=== PATIENT | female | born 1990 | race Caucasian/White ===

== ENCOUNTER → 2016-10-24 | Outpatient (REF) | payer OTHER | LOC: M LAB REF 09:04 | PROVIDERS: ATTEND Physician Assistant Medical | DX: N39.0 Urinary tract infection, site not specified (principal) ==

== ENCOUNTER → 2016-11-25 | Outpatient (CLI) | payer OTHER ==
[2016-11-25 15:58] LABS: BASO % 0.6 % (0.0-1.0); EOS # 0.2 K/mm3 (0.0-0.50); EOS % 3.3 % (0.0-3.0); LARGE UNSTAINED CELL # 0.1 K/mm3 (0.0-0.4); LARGE UNSTAINED CELL % 1.5 % (0.0-4.0); LYMPH # 2.2 K/mm3 (1.5-6.5); LYMPH % 30.7 % (24.0-44.0); MEAN CORPUSCULAR HEMOGLOBIN 30.6 pg (27.0-33.0); MEAN CORPUSCULAR HGB CONC 33.8 g/dl (32.0-36.5); MEAN CORPUSCULAR VOLUME 90.5 fl (80.0-96.0); MONO # 0.4 K/mm3 (0.0-0.8); MONO % 5.2 % (0.0-5.0); NEUTROPHILS % 58.7 % (36.0-66.0); PLATELET COUNT, AUTOMATED 375 k/mm3 (150-450); RED CELL DISTRIBUTION WIDTH 12.4 % (11.5-14.5); WHITE BLOOD COUNT 6.9 K/mm3 (4.0-10.0)
[2016-11-25 16:31] LABS: FREE T4 1.03 NG/DL (0.76-1.46)
== END ==
LOC: M LAB 15:11
PROVIDERS: ATTEND Nurse Practitioner Family
DX: R53.83 Other fatigue (principal); R03.0 Elevated blood-pressure reading, without diagnosis of hypertension

== ENCOUNTER 2016-12-08 08:16 | Emergency (ER) | payer OTHER ==
[~2016-12-08] VITALS: Ht 162.6 cm; Wt 90.7 kg
[2016-12-08 08:31] VITALS: BP 129/81
== END 2016-12-08 09:15 | disposition home or self-care (01) ==
LOC: M ED 09:09
DX: J06.9 Acute upper respiratory infection, unspecified (principal); F17.210 Nicotine dependence, cigarettes, uncomplicated

== ENCOUNTER → 2016-12-20 | Outpatient (CLI) | payer OTHER ==
[2016-12-20 18:16] LABS: LUTEINIZING HORMONE 8.2 mIU/mL; PROGESTERONE 7.2 NG/ML; PROLACTIN 11.8 NG/ML
[2016-12-20 18:17] LABS: FOLLICLE STIMULATING HORMONE 3.2 mIU/mL
== END ==
LOC: M SMT 13:50
PROVIDERS: ATTEND Specialist
DX: N93.8 Other specified abnormal uterine and vaginal bleeding (principal)
CPT/HCPCS: 36415; 83001; 83002; 84144; 84146; G0123

== ENCOUNTER → 2017-11-11 | Outpatient (CLI) | payer OTHER | LOC: M SMT 10:48 | DX: N83.299 Other ovarian cyst, unspecified side (principal) | CPT/HCPCS: 76830 ==

== ENCOUNTER 2018-06-10 18:20 | Emergency (ER) | payer OTHER | END 2018-06-10 23:22 | disposition home or self-care (01) | LOC: M ED 18:20 | DX: S90.112A Contusion of left great toe without damage to nail, initial encounter (principal); X58.XXXA Exposure to other specified factors, initial encounter; Y92.59 Other trade areas as the place of occurrence of the external cause; Y99.0 Civilian activity done for income or pay; F17.200 Nicotine dependence, unspecified, uncomplicated | CPT/HCPCS: 73660 ==

== ENCOUNTER → 2018-06-10 | Outpatient (CLI) | payer OTHER | LOC: M WUC 17:44 | DX: M54.41 Lumbago with sciatica, right side (principal) | CPT/HCPCS: 72110 ==

== ENCOUNTER → 2018-06-13 | Outpatient (CLI) | payer OTHER ==
[2018-06-13 18:02] LABS: ALBUMIN 4.6 GM/DL (3.2-5.2); ALBUMIN/GLOBULIN RATIO 1.39 (1.00-1.93); ALKALINE PHOSPHATASE 74 U/L (45-117); ALT/SGPT 19 U/L (12-78); ANION GAP 8 MEQ/L (8-16); AST/SGOT 12 U/L (7-37); BILIRUBIN,TOTAL 0.6 MG/DL (0.2-1.0); BLOOD UREA NITROGEN 12 MG/DL (7-18); CALCIUM LEVEL 10.1 MG/DL (8.5-10.1); CARBON DIOXIDE LEVEL 28 MEQ/L (21-32); CHLORIDE LEVEL 107 MEQ/L (98-107); CHOLESTEROL LEVEL 162 MG/DL (<200); CHOLESTEROL RISK RATIO 2.612 (<5); CREATININE FOR GFR 0.78 MG/DL (0.55-1.30); GLOMERULAR FILTRATION RATE > 60.0 (>60); GLUCOSE, FASTING 89 MG/DL (70-100); HDL CHOLESTEROL 62 MG/DL (>40); LDL CHOLESTEROL 84.4 MG/DL (<100); NON-HDL-C 100 MG/DL; SODIUM LEVEL 143 MEQ/L (136-145); TOTAL PROTEIN 7.9 GM/DL (6.4-8.2); TRIGLYCERIDES LEVEL 78 MG/DL (<150)
[2018-06-13 18:06] LABS: POTASSIUM SERUM 5.3 MEQ/L (3.5-5.1)
== END ==
LOC: M WUC 11:13
DX: Z00.00 Encounter for general adult medical examination without abnormal findings (principal); Z13.220 Encounter for screening for lipoid disorders; Z68.30 Body mass index [BMI] 30.0-30.9, adult
CPT/HCPCS: 80053

== ENCOUNTER → 2018-06-23 | Outpatient (REF) | payer OTHER ==
[2018-06-23 14:18] LABS: ANION GAP 7 MEQ/L (8-16); BLOOD UREA NITROGEN 10 MG/DL (7-18); CALCIUM LEVEL 9.5 MG/DL (8.5-10.1); CARBON DIOXIDE LEVEL 29 MEQ/L (21-32); CHLORIDE LEVEL 104 MEQ/L (98-107); GLOMERULAR FILTRATION RATE > 60.0 (>60); GLUCOSE, FASTING 101 MG/DL (70-100); POTASSIUM SERUM 3.9 MEQ/L (3.5-5.1); SODIUM LEVEL 140 MEQ/L (136-145)
== END ==
LOC: M SFHCPLAZ 12:28
DX: E87.5 Hyperkalemia (principal)

== ENCOUNTER → 2018-07-08 | Outpatient (REF) | payer OTHER | LOC: M LAB REF 09:29 | DX: R30.0 Dysuria (principal) ==

== ENCOUNTER 2018-07-11 15:57 | Emergency (ER) | payer OTHER, SELFPAY ==
[2018-07-11] MEDS: AZITHROMYCIN 250 MG TAB PO (16:47)
[2018-07-11] MEDS: LIDOCAINE 1% MDV 20ML VIAL IM (16:47)
[2018-07-11] MEDS: cefTRIAXone SOD 250 MG VIAL (J0696) IM (16:47)
[2018-07-11 17:29] LABS: AMORPHOUS SEDIMENT RFX LARGE (NEGATIVE); KETONE, URINE AUTO RFX NEGATIVE (NEGATIVE); NITRITE, URINE AUTO RFX NEGATIVE (NEGATIVE); RBC, URINE AUTO RFX 2 /HPF (0-3); SPECIFIC GRAVITY UR AUTO RFX 1.011 (1.002-1.035); SQUAM EPITHELIAL CELL UR AURFX 2 /HPF (0-6); WBC, URINE AUTO RFX 0 /HPF (0-3)
[2018-07-11 17:37] LABS: LEUKOCYTE ESTERASE UR AUTO RFX TRACE (NEGATIVE)
[2018-07-11 18:23] LABS: CHLAMYDIA DNA AMPLIFICATION POSITIVE (NEGATIVE); GC DNA AMPLIFICATION NEGATIVE (NEGATIVE)
[2018-07-13 10:41] LABS: HIV 1&2 SCREEN CENTAUR NEGATIVE (NEGATIVE)
== END 2018-07-11 16:54 | disposition home or self-care (01) ==
LOC: M ED 15:57
DX: Z20.2 Contact with and (suspected) exposure to infections with a predominantly sexual mode of transmission (principal); A74.9 Chlamydial infection, unspecified; F17.210 Nicotine dependence, cigarettes, uncomplicated
CPT/HCPCS: J0696

== ENCOUNTER → 2018-07-16 | Outpatient (REF) | payer OTHER ==
[2018-07-16 12:37] LABS: CONTROL LINE HCG INT CTR LINE PRESENT; HCG, SERUM QUALITATIVE NEGATIVE (NEGATIVE)
== END ==
LOC: M SFHCPLAZ 10:27
DX: N91.2 Amenorrhea, unspecified (principal); R10.9 Unspecified abdominal pain; R30.0 Dysuria
CPT/HCPCS: 84703

== ENCOUNTER → 2018-07-30 | Outpatient (CLI) | payer OTHER | LOC: M RAD 10:16 | DX: R10.9 Unspecified abdominal pain (principal) | CPT/HCPCS: 76775 ==

== ENCOUNTER → 2018-08-08 | Outpatient (CLI) | payer SELFPAY ==
[2018-08-08 21:44] LABS: CHLAMYDIA DNA AMPLIFICATION NEGATIVE (NEGATIVE); GC DNA AMPLIFICATION NEGATIVE (NEGATIVE)
== END ==
LOC: M LAB 17:29
DX: A74.9 Chlamydial infection, unspecified (principal)
CPT/HCPCS: 36415

== ENCOUNTER 2018-09-28 16:45 | Emergency (ER) | payer SELFPAY ==
[~2018-09-28] VITALS: Ht 162.6 cm; Wt 77.3 kg
[2018-09-28] MEDS ORDERED: NORCO, ANEXSIA 5/325MG TABLET (HYDROcodone/ACETAMINOPHEN) PO ONE (17:30)
--- NOTE | 2018-09-28 17:58 | REP ---
Clinical: Trauma. Deformity. Technique: AP, lateral, bilateral oblique views of the left ankle. Findings: Nondisplaced oblique fracture of the lateral malleolus with overlying soft tissue swelling. Minuscule avulsion fracture fragment of the medial malleolus cannot be excluded. Overlying soft tissue swelling. Impression: Nondisplaced oblique fracture of the lateral malleolus with minuscule a avulsion fracture of the medial malleolus. Electronically Signed by Christophe Carreno MD 09/28/2018 05:50 P
[2018-09-28] MEDS ORDERED: NORCO 5/325MG TABLET (BULK FOR ED) PO ONE (18:30)
[2018-09-28] MEDS ORDERED: NORCOTAB PO (18:32)
[2018-09-28 18:42] VITALS: BP 134/81
== END 2018-09-28 18:55 | disposition home or self-care (01) ==
LOC: M ED 16:45
DX: S82.401A Unspecified fracture of shaft of right fibula, initial encounter for closed fracture (principal); S82.832A Other fracture of upper and lower end of left fibula, initial encounter for closed fracture; X50.9XXA Other and unspecified overexertion or strenuous movements or postures, initial encounter; Y92.410 Unspecified street and highway as the place of occurrence of the external cause

== ENCOUNTER 2018-09-29 16:17 | Emergency (ER) | payer SELFPAY ==
[~2018-09-29] VITALS: Ht 162.6 cm; Wt 77.3 kg
[2018-09-29 16:17] VITALS: BP 141/90
[~2018-09-29 16:17] MED LIST: NORCOTAB PO
[2018-09-29] MEDS ORDERED: NORCO 5/325MG TABLET (BULK FOR ED) PO ONE (17:00)
== END 2018-09-29 17:07 | disposition home or self-care (01) ==
LOC: M ED 16:17
DX: Z76.0 Encounter for issue of repeat prescription (principal); S82.899A Other fracture of unspecified lower leg, initial encounter for closed fracture; Y92.89 Other specified places as the place of occurrence of the external cause; F17.200 Nicotine dependence, unspecified, uncomplicated

== ENCOUNTER → 2018-10-20 | Outpatient (REF) | payer OTHER ==
[2018-10-20 17:32] LABS: CHLAMYDIA DNA AMPLIFICATION NEGATIVE (NEGATIVE); GC DNA AMPLIFICATION NEGATIVE (NEGATIVE)
== END ==
LOC: M SFHCPLAZ 13:05
PROVIDERS: ATTEND Family Medicine
DX: R10.2 Pelvic and perineal pain (principal)

== ENCOUNTER 2018-12-01 09:59 | Outpatient (RCR) | payer OTHER | END 2018-12-03 | LOC: M PT 09:59 | PROVIDERS: ATTEND Physician Assistant Surgical | DX: S82.65XD Nondisplaced fracture of lateral malleolus of left fibula, subsequent encounter for closed fracture with routine healing (principal); Y99.8 Other external cause status; X58.XXXA Exposure to other specified factors, initial encounter ==

== ENCOUNTER → 2018-12-09 | Outpatient (CLI) | payer OTHER | LOC: M WUC 09:56 | PROVIDERS: ATTEND Physician Assistant Surgical | DX: M77.52 Other enthesopathy of left foot and ankle (principal) ==

== ENCOUNTER 2018-12-17 09:45 | Outpatient (RCR) | payer OTHER | END 2019-01-03 | LOC: M PT 09:45 | PROVIDERS: ATTEND Physician Assistant | DX: M77.52 Other enthesopathy of left foot and ankle (principal) ==

== ENCOUNTER → 2019-02-17 | Outpatient (REF) | payer OTHER ==
[~2019-02-17] MED LIST changes: +HYDR-3715 PO; -NORCOTAB PO
[2019-02-17 18:04] LABS: CHLAMYDIA DNA AMPLIFICATION NEGATIVE (NEGATIVE); GC DNA AMPLIFICATION NEGATIVE (NEGATIVE)
== END ==
LOC: M SFHCPLAZ 15:42
PROVIDERS: ATTEND Nurse Practitioner Family
DX: Z20.2 Contact with and (suspected) exposure to infections with a predominantly sexual mode of transmission (principal); R39.15 Urgency of urination

== ENCOUNTER → 2019-03-05 | Outpatient (RCR) | payer OTHER | LOC: M PT 02-15 09:40 | PROVIDERS: ATTEND Orthopaedic Surgery | DX: S82.845A Nondisplaced bimalleolar fracture of left lower leg, initial encounter for closed fracture (principal); M25.872 Other specified joint disorders, left ankle and foot; X58.XXXA Exposure to other specified factors, initial encounter; Y92.89 Other specified places as the place of occurrence of the external cause; Y93.89 Activity, other specified; Y99.8 Other external cause status ==

== ENCOUNTER → 2019-03-11 | Outpatient (CLI) | payer OTHER | LOC: M SMT 11:58 | PROVIDERS: ATTEND Orthopaedic Surgery | DX: S82.845D Nondisplaced bimalleolar fracture of left lower leg, subsequent encounter for closed fracture with routine healing (principal); X58.XXXD Exposure to other specified factors, subsequent encounter ==

== ENCOUNTER → 2019-03-11 | Outpatient (REF) | payer OTHER ==
[2019-03-11 15:37] LABS: CHLAMYDIA DNA AMPLIFICATION NEGATIVE (NEGATIVE); GC DNA AMPLIFICATION NEGATIVE (NEGATIVE)
== END ==
LOC: M LAB REF 13:19
PROVIDERS: ATTEND Specialist
DX: Z11.3 Encounter for screening for infections with a predominantly sexual mode of transmission (principal)

== ENCOUNTER → 2019-03-11 | Outpatient (CLI) | payer OTHER ==
[2019-03-12 11:08] LABS: HEPATITIS A ANTIBODY IGM NEGATIVE (NEGATIVE); HEPATITIS B CORE ANTIBODY IGM NEGATIVE (NEGATIVE); HEPATITIS B SURFACE ANTIGEN NEGATIVE (NEGATIVE); HEPATITIS C VIRUS ABY INDEX < 0.0 INDEX (<0.8); HIV 1&2 SCREEN CENTAUR NEGATIVE (NEGATIVE)
== END ==
LOC: M SMT 12:01
PROVIDERS: ATTEND Specialist
DX: Z11.3 Encounter for screening for infections with a predominantly sexual mode of transmission (principal)

== ENCOUNTER 2019-04-02 10:30 | Outpatient (RCR) | payer OTHER | END 2019-04-04 | LOC: M PT 10:30 | PROVIDERS: ATTEND Orthopaedic Surgery | DX: S82.845D Nondisplaced bimalleolar fracture of left lower leg, subsequent encounter for closed fracture with routine healing (principal); M25.872 Other specified joint disorders, left ankle and foot ==

== ENCOUNTER 2019-04-12 10:30 | Outpatient (RCR) | payer OTHER | END 2019-05-05 | LOC: M PT 10:30 | PROVIDERS: ATTEND Orthopaedic Surgery | DX: S82.845 Nondisplaced bimalleolar fracture of left lower leg (principal); M25.872 Other specified joint disorders, left ankle and foot ==

== ENCOUNTER → 2019-04-13 | Outpatient (REF) | payer OTHER ==
[2019-04-13 13:18] LABS: BASO # 0.1 10^3/uL (0.0-0.2); BASO % 0.8 % (0.0-1.0); EOS # 0.2 10^3/uL (0.0-0.50); EOS % 3.1 % (0.0-3.0); HEMATOCRIT 41.4 % (36.0-47.0); HEMOGLOBIN 13.7 g/dl (12.0-15.5); LYMPH # 2.1 10^3/uL (1.5-6.5); LYMPH % 36.1 % (24.0-44.0); MEAN CORPUSCULAR HEMOGLOBIN 31.4 pg (27.0-33.0); MEAN CORPUSCULAR HGB CONC 33.1 g/dl (32.0-36.5); MEAN CORPUSCULAR VOLUME 94.7 fl (80.0-96.0); MONO # 0.5 10^3/uL (0.0-0.8); MONO % 8.5 % (0.0-5.0); PLATELET COUNT, AUTOMATED 393 10^3/uL (150-450); RED BLOOD COUNT 4.37 10^6/uL (4.00-5.40); WHITE BLOOD COUNT 5.9 10^3/uL (4.0-10.0)
[2019-04-13 14:24] LABS: BLOOD UREA NITROGEN 15 MG/DL (7-18); CARBON DIOXIDE LEVEL 25 MEQ/L (21-32); CHLORIDE LEVEL 107 MEQ/L (98-107); CREATININE FOR GFR 0.84 MG/DL (0.55-1.30); GLOMERULAR FILTRATION RATE > 60.0 (>60); GLUCOSE, FASTING 82 MG/DL (70-100); POTASSIUM SERUM 4.3 MEQ/L (3.5-5.1); SODIUM LEVEL 140 MEQ/L (136-145)
== END ==
LOC: M SFHCPLAZ 11:18
PROVIDERS: ATTEND Nurse Practitioner Family
DX: R63.5 Abnormal weight gain (principal); Z68.34 Body mass index [BMI] 34.0-34.9, adult

== ENCOUNTER → 2019-04-20 | Outpatient (CLI) | payer OTHER ==
[~2019-04-20] MED LIST changes: +CHOL100029 PO; +CIPR-249 PO; +FLAG500T PO; +ISOVUE-370 76% 100ML VIAL (Q9967) As Ordered ONE; +ONDA4TAB6 PO
--- NOTE | 2019-04-20 14:54 | REP ---
HYSTEROSALPINGOGRAM: 10 VIEWS. HISTORY: Infertility, secondary. PROCEDURE: The injection procedure is performed by the attending enterprise resource planner. Fluoroscopic spot filming was acquired. The fluoroscopy time for this examination is 0.8 minutes. FINDINGS: Sequential pelvic spot radiographs demonstrate opacification of a normal endometrial cavity. The isthmic and ampullary segments of the fallopian tubes are symmetrically opacified. Bilateral peritoneal spillage is documented. No filling defect is seen. IMPRESSION: Normal hysterosalpingogram. Bilateral tubal patency documented. Electronically Signed by Charly Penaloza MD 04/20/2019 03:04 P
== END ==
LOC: M RADPRO 12:02
PROVIDERS: ATTEND Specialist
DX: N93.8 Other specified abnormal uterine and vaginal bleeding (principal)
CPT/HCPCS: 58340; 74740; Q9967

== ENCOUNTER 2019-07-18 15:53 | Emergency (ER) | payer OTHER ==
[~2019-07-18] VITALS: Ht 162.6 cm; Wt 88.6 kg
[~2019-07-18 15:53] MED LIST changes: -CHOL100029 PO; -CIPR-249 PO; -FLAG500T PO; -ISOVUE-370 76% 100ML VIAL (Q9967) As Ordered ONE; -ONDA4TAB6 PO
[2019-07-18] MEDS ORDERED: CHOL100029 PO (16:01)
[2019-07-18 16:32] LABS: BASO # 0.1 10^3/uL (0.0-0.2); BASO % 0.7 % (0.0-1.0); EOS # 0.1 10^3/uL (0.0-0.5); EOS % 1.2 % (0.0-3.0); HEMATOCRIT 44.1 % (36.0-47.0); HEMOGLOBIN 14.7 g/dl (12.0-15.5); LYMPH # 2.6 10^3/uL (1.5-5.0); LYMPH % 29.8 % (24.0-44.0); MEAN CORPUSCULAR HEMOGLOBIN 30.2 pg (27.0-33.0); MEAN CORPUSCULAR HGB CONC 33.3 g/dl (32.0-36.5); MEAN CORPUSCULAR VOLUME 90.6 fl (80.0-96.0); MONO # 0.5 10^3/uL (0.0-0.8); MONO % 6.1 % (0.0-5.0); NEUTROPHILS # 5.3 10^3/uL (1.5-8.5); NEUTROPHILS % 62.1 % (36.0-66.0); PLATELET COUNT, AUTOMATED 398 10^3/uL (150-450); RED BLOOD COUNT 4.87 10^6/uL (4.00-5.40); WHITE BLOOD COUNT 8.6 10^3/uL (4.0-10.0)
[2019-07-18 17:00] LABS: HCG, SERUM QUALITATIVE NEGATIVE (NEGATIVE)
[2019-07-18 17:01] LABS: ALBUMIN 4.5 GM/DL (3.2-5.2); ALT/SGPT 20 U/L (12-78); BILIRUBIN,DIRECT 0.2 MG/DL (0.0-0.2); BILIRUBIN,TOTAL 0.7 MG/DL (0.2-1.0); BLOOD UREA NITROGEN 13 MG/DL (7-18); CALCIUM LEVEL 9.5 MG/DL (8.5-10.1); CARBON DIOXIDE LEVEL 27 MEQ/L (21-32); CHLORIDE LEVEL 106 MEQ/L (98-107); CREATININE FOR GFR 0.84 MG/DL (0.55-1.30); GLOMERULAR FILTRATION RATE > 60.0 (>60); GLUCOSE, FASTING 92 MG/DL (70-100); LIPASE 82 U/L (73-393); POTASSIUM SERUM 3.9 MEQ/L (3.5-5.1); SODIUM LEVEL 139 MEQ/L (136-145); TOTAL PROTEIN 7.6 GM/DL (6.4-8.2)
[2019-07-18] MEDS ORDERED: NS 1,000 ML IV ONE (18:15)
[2019-07-18] MEDS ORDERED: ISOVUE-370 76% 100ML VIAL (Q9967) As Ordered ONE (18:22)
--- NOTE | 2019-07-18 20:12 | REPVR ---
PROCEDURE INFORMATION: Exam: CT Abdomen And Pelvis With Contrast Exam date and time: 07/18/2019 6:54 PM Clinical history: 28 years old, female; Abdominal pain; Localized; Left; Additional info: Left sided abd pain TECHNIQUE: Imaging protocol: Computed tomography of the abdomen and pelvis with intravenous contrast. Radiation optimization: All CT scans at this facility use at least one of these dose optimization techniques: automated exposure control; mA and/or kV adjustment per patient size (includes targeted exams where dose is matched to clinical indication); or iterative reconstruction. Contrast material: ISOVUE 370; Contrast volume: 100 ml; Contrast route: IV; COMPARISON: CT ABD PELVIS W/O FOL BY WIT 10/18/2013 10:11 AM FINDINGS: Liver: Normal. No mass. Gallbladder and bile ducts: Normal. No calcified stones. No ductal dilation. Pancreas: Normal. No ductal dilation. Spleen: Normal. No splenomegaly. Adrenals: Normal. No mass. Kidneys and ureters: Normal. No hydronephrosis. Stomach and bowel: Question mild thickening of the sigmoid colon, correlate for mild colitis, infectious/inflammatory. Couple chronic diverticula are present. Appendix: No evidence of appendicitis. Intraperitoneal space: Unremarkable. No free air. No significant fluid collection. Vasculature: Unremarkable. No abdominal aortic aneurysm. Lymph nodes: Unremarkable. No enlarged lymph nodes. Bladder: Unremarkable as visualized. Reproductive: 2 cm right ovarian simple cyst, no followup is necessary. Bones/joints: Unremarkable. No acute fracture. Soft tissues: Unremarkable. IMPRESSION: Question mild thickening of the sigmoid colon, correlate for mild colitis, infectious/inflammatory. Electronically signed by: Sylvester Goodwin On 07/18/2019 20:12:06 PM
[2019-07-18] MEDS ORDERED: metroNIDAZOLE (FLAGYL) 500 MG TAB PO ONE (20:30)
[2019-07-18] MEDS ORDERED: CIPROFLOXACIN 500 MG TAB PO ONE (20:30)
[2019-07-18] MEDS ORDERED: FLAG500T PO (20:34)
[2019-07-18] MEDS ORDERED: CIPR-249 PO (20:34)
[2019-07-18] MEDS ORDERED: ONDA4TAB6 PO (20:34)
[2019-07-18 20:36] VITALS: BP 165/90
[2019-07-18] MEDS ORDERED: ONDANSETRON 4 MG ORAL DISINTEGRATING TAB (Q0162 PER 1MG) PO ONE (20:45)
== END 2019-07-18 20:54 | disposition home or self-care (01) ==
LOC: M ED 15:53
DX: K50.10 Crohn's disease of large intestine without complications (principal); E66.9 Obesity, unspecified; Z79.899 Other long term (current) drug therapy
CPT/HCPCS: 36415; 74177; 80048; 80076; 81001; 83690; 84703; 85025; 99284; Q0162; Q9967

== ENCOUNTER 2019-07-26 18:24 | Emergency (ER) | payer OTHER ==
[~2019-07-26] VITALS: Ht 162.6 cm; Wt 86.6 kg
[~2019-07-26 18:24] MED LIST changes: +CHOL100029 PO; +CIPR-249 PO; +FLAG500T PO; +ONDA4TAB6 PO
[2019-07-26] MEDS ORDERED: NS 1,000 ML IV ONE (21:15)
[2019-07-26 21:32] LABS: BASO % 0.4 % (0.0-1.0); EOS # 0.1 10^3/uL (0.0-0.5); EOS % 1.4 % (0.0-3.0); HEMATOCRIT 41.6 % (36.0-47.0); HEMOGLOBIN 14.2 g/dl (12.0-15.5); LYMPH # 3.4 10^3/uL (1.5-5.0); LYMPH % 40.6 % (24.0-44.0); MEAN CORPUSCULAR HEMOGLOBIN 30.4 pg (27.0-33.0); MEAN CORPUSCULAR HGB CONC 34.1 g/dl (32.0-36.5); MEAN CORPUSCULAR VOLUME 89.1 fl (80.0-96.0); MONO # 0.5 10^3/uL (0.0-0.8); MONO % 6.4 % (0.0-5.0); NEUTROPHILS # 4.3 10^3/uL (1.5-8.5); NEUTROPHILS % 50.8 % (36.0-66.0); PLATELET COUNT, AUTOMATED 405 10^3/uL (150-450); RED BLOOD COUNT 4.67 10^6/uL (4.00-5.40); WHITE BLOOD COUNT 8.4 10^3/uL (4.0-10.0)
[2019-07-26 21:50] LABS: ALBUMIN 4.5 GM/DL (3.2-5.2); BILIRUBIN,DIRECT 0.1 MG/DL (0.0-0.2); BILIRUBIN,TOTAL 0.4 MG/DL (0.2-1.0); TOTAL PROTEIN 7.7 GM/DL (6.4-8.2)
--- NOTE | 2019-07-26 23:39 | REPVR ---
PROCEDURE INFORMATION: Exam: CT Abdomen And Pelvis Without Contrast Exam date and time: 07/26/2019 10:26 PM Clinical history: 28 years old, female; Abdominal pain; Flank; Left; Additional info: L flank pain, R/O stone TECHNIQUE: Imaging protocol: Computed tomography of the abdomen and pelvis without contrast. Radiation optimization: All CT scans at this facility use at least one of these dose optimization techniques: automated exposure control; mA and/or kV adjustment per patient size (includes targeted exams where dose is matched to clinical indication); or iterative reconstruction. COMPARISON: CT ABD/PEL W/IV CONTRAST ONLY 07/18/2019 6:52 PM FINDINGS: Liver: Normal. No mass. Gallbladder and bile ducts: Normal. No calcified stones. No ductal dilation. Pancreas: Normal. No ductal dilation. Spleen: Normal. No splenomegaly. Adrenals: Normal. No mass. Kidneys and ureters: No urinary tract calculi. No hydronephrosis. Kidneys are unremarkable. Stomach and bowel: Unremarkable. No obstruction. No mucosal thickening. Appendix: No evidence of appendicitis. Intraperitoneal space: Unremarkable. No free air. No significant fluid collection. Vasculature: Unremarkable. No abdominal aortic aneurysm. Lymph nodes: Unremarkable. No enlarged lymph nodes. Bladder: Unremarkable as visualized. Reproductive: Unremarkable as visualized. Bones/joints: Unremarkable. No acute fracture. Soft tissues: Unremarkable. IMPRESSION: No acute findings. Electronically signed by: Fabio Gallardo On 07/26/2019 23:39:43 PM
[2019-07-26 23:48] VITALS: BP 147/89
== END 2019-07-27 00:03 | disposition home or self-care (01) ==
LOC: M ED 18:24
DX: R10.9 Unspecified abdominal pain (principal); R11.0 Nausea; K21.9 Gastro-esophageal reflux disease without esophagitis; Z87.19 Personal history of other diseases of the digestive system; Z87.448 Personal history of other diseases of urinary system

== ENCOUNTER → 2019-07-29 | Outpatient (CLI) | payer OTHER ==
--- NOTE | 2019-07-29 13:11 | REP ---
Five views left ribs and thorax: 07/29/2019. Indication: Dyspnea. Sure rib syndrome. Comparison: None. Findings: The lungs are clear. There is no pleural effusion or pneumothorax. The cardiomediastinal silhouette is unremarkable. There is no left rib fracture, subluxation or dislocation. There is no lung contusion. Impression: No acute rib fracture or additional acute abnormalities of the thorax detected. Electronically Signed by Ras Chávez DO 07/29/2019 01:03 P
== END ==
LOC: M SMT 10:47
PROVIDERS: ATTEND Physician Assistant Medical
DX: Q77.2 Short rib syndrome (principal)

== ENCOUNTER → 2019-07-29 | Outpatient (REF) | payer OTHER ==
[2019-07-29 11:44] LABS: BASO # 0.1 10^3/uL (0.0-0.2); BASO % 0.8 % (0.0-1.0); EOS # 0.1 10^3/uL (0.0-0.5); EOS % 1.4 % (0.0-3.0); HEMATOCRIT 43.9 % (36.0-47.0); HEMOGLOBIN 14.9 g/dl (12.0-15.5); LYMPH # 2.1 10^3/uL (1.5-5.0); LYMPH % 33.1 % (24.0-44.0); MEAN CORPUSCULAR HGB CONC 33.9 g/dl (32.0-36.5); MEAN CORPUSCULAR VOLUME 91.3 fl (80.0-96.0); MONO # 0.5 10^3/uL (0.0-0.8); MONO % 8.2 % (0.0-5.0); NEUTROPHILS # 3.5 10^3/uL (1.5-8.5); NEUTROPHILS % 56.2 % (36.0-66.0); PLATELET COUNT, AUTOMATED 413 10^3/uL (150-450); RED BLOOD COUNT 4.81 10^6/uL (4.00-5.40); WHITE BLOOD COUNT 6.3 10^3/uL (4.0-10.0)
[2019-07-29 12:14] LABS: ERYTHROCYTE SEDIMENTATION RATE 3 mm/hr (0-20)
[2019-07-29 12:30] LABS: ALBUMIN 4.6 GM/DL (3.2-5.2); ALT/SGPT 18 U/L (12-78); BILIRUBIN,TOTAL 0.6 MG/DL (0.2-1.0); BLOOD UREA NITROGEN 11 MG/DL (7-18); C REACTIVE PROTEIN QUANTITATIV < 0.30 MG/DL (0.00-0.30); CALCIUM LEVEL 9.5 MG/DL (8.5-10.1); CARBON DIOXIDE LEVEL 25 MEQ/L (21-32); CHLORIDE LEVEL 105 MEQ/L (98-107); CPK CREATINE PHOSPHOKINASE 77 U/L (26-192); CREATININE FOR GFR 0.83 MG/DL (0.55-1.30); GLOMERULAR FILTRATION RATE > 60.0 (>60); GLUCOSE, FASTING 87 MG/DL (70-100); POTASSIUM SERUM 4.1 MEQ/L (3.5-5.1); SODIUM LEVEL 139 MEQ/L (136-145); TOTAL PROTEIN 7.4 GM/DL (6.4-8.2)
== END ==
LOC: M SFHCPLAZ 10:34
PROVIDERS: ATTEND Physician Assistant Medical
DX: G89.29 Other chronic pain (principal); R19.7 Diarrhea, unspecified

== ENCOUNTER → 2019-08-24 | Outpatient (CLI) | payer OTHER ==
[2019-08-24 18:40] LABS: BASO % 0.7 % (0.0-1.0); EOS # 0.1 10^3/uL (0.0-0.5); EOS % 1.5 % (0.0-3.0); HEMOGLOBIN 14.7 g/dl (12.0-15.5); LYMPH # 2.1 10^3/uL (1.5-5.0); LYMPH % 34.9 % (24.0-44.0); MEAN CORPUSCULAR HEMOGLOBIN 30.9 pg (27.0-33.0); MEAN CORPUSCULAR HGB CONC 33.4 g/dl (32.0-36.5); MEAN CORPUSCULAR VOLUME 92.6 fl (80.0-96.0); MONO # 0.4 10^3/uL (0.0-0.8); NEUTROPHILS # 3.3 10^3/uL (1.5-8.5); NEUTROPHILS % 56.6 % (36.0-66.0); PLATELET COUNT, AUTOMATED 390 10^3/uL (150-450); RED BLOOD COUNT 4.75 10^6/uL (4.00-5.40); WHITE BLOOD COUNT 5.9 10^3/uL (4.0-10.0)
[2019-08-24 19:09] LABS: ALT/SGPT 18 U/L (12-78); BLOOD UREA NITROGEN 10 MG/DL (7-18); CALCIUM LEVEL 10.2 MG/DL (8.5-10.1); CARBON DIOXIDE LEVEL 28 MEQ/L (21-32); CHLORIDE LEVEL 106 MEQ/L (98-107); CREATININE FOR GFR 0.82 MG/DL (0.55-1.30); GLOMERULAR FILTRATION RATE > 60.0 (>60); GLUCOSE, FASTING 87 MG/DL (70-100); POTASSIUM SERUM 4.9 MEQ/L (3.5-5.1); SODIUM LEVEL 139 MEQ/L (136-145)
[2019-08-24 19:10] LABS: ALBUMIN 4.6 GM/DL (3.2-5.2); BILIRUBIN,TOTAL 0.4 MG/DL (0.2-1.0); IMMUNOGLOBULIN G 834 MG/DL (681-1648); TOTAL PROTEIN 7.5 GM/DL (6.4-8.2)
[2019-08-24 19:22] LABS: ERYTHROCYTE SEDIMENTATION RATE 2 mm/hr (0-20)
[2019-08-24 19:26] LABS: IMMUNOGLOBULIN E 17.6 IU/ML (<100)
== END ==
LOC: M SMT 13:15
PROVIDERS: ATTEND Allergy & Immunology Allergy
DX: D84.9 Immunodeficiency, unspecified (principal)

== ENCOUNTER → 2019-10-11 | Outpatient (REF) | payer OTHER ==
[2019-10-12 12:07] LABS: CHLAMYDIA DNA AMPLIFICATION NEGATIVE (NEGATIVE); GC DNA AMPLIFICATION NEGATIVE (NEGATIVE)
== END ==
LOC: M SFHCWAGY 09:26
PROVIDERS: ATTEND Specialist
DX: N89.8 Other specified noninflammatory disorders of vagina (principal)

== ENCOUNTER → 2019-10-18 | Outpatient (CLI) | payer OTHER | LOC: M PLALAB 12:40 | PROVIDERS: ATTEND Nurse Practitioner Family | DX: D84.9 Immunodeficiency, unspecified (principal) ==

== ENCOUNTER → 2019-11-15 | Outpatient (REF) | payer OTHER ==
[~2019-11-15] MED LIST changes: +AZEL0.055 NARES; +FLON1SPR; +HM V4000 PO; +OMEP40CA97 PO
== END ==
LOC: M LABDRAW1 11:46
PROVIDERS: ATTEND Orthopaedic Surgery
DX: S82.845 Nondisplaced bimalleolar fracture of left lower leg (principal)

== ENCOUNTER 2019-11-25 06:58 | Day surgery (SDC) | payer OTHER ==
[~2019-11-25] VITALS: Ht 162.6 cm; Wt 89.3 kg
[2019-11-25] MEDS ORDERED: NS 1,000 ML IV ONE (07:00)
[2019-11-25] MEDS ORDERED: propofoL 200 MG/20 ML VIAL As Ordered ONE ×3 (07:11→07:33)
[2019-11-25] MEDS ORDERED: LIDOCAINE 2% INJ 100 MG/5 ML SDV (FOR ANES.) As Ordered ONE (07:11)
--- NOTE | 2019-11-25 07:48 | ROOR ---
Patient Name: Tonya Doyle Procedure Date: 11/25/2019 7:27 AM Date of : 1990 Age: 29 Room: [facility] Gender: Female Note Status: Finalized Procedure: Colonoscopy Indications: Abnormal CT of the GI tract, Irritable bowel syndrome Providers: Sylvester GARCIA MD Referring MD: Juanita COONEY Requesting Provider: Medicines: Monitored Anesthesia Care Complications: No immediate complications. Procedure: Pre-Anesthesia Assessment: - The heart rate, respiratory rate, oxygen saturations, blood pressure, adequacy of pulmonary ventilation, and response to care were monitored throughout the procedure. The Colonoscope was introduced through the anus and advanced to 10 cm into the ileum. The colonoscopy was performed without difficulty. The patient tolerated the procedure well. The quality of the bowel preparation was good. Findings: The perianal and digital rectal examinations were normal. The terminal ileum appeared normal. The colon (entire examined portion) appeared normal. Small Internal Hemorrhoids. Impression: - The examined portion of the ileum was normal. - The entire examined colon is normal. - Small Internal Hemorrhoids. - No specimens collected. Recommendation: - Use fiber, for example Citrucel, Fibercon, Konsyl or Metamucil. - Continue present medications. Sylvester Garcia MD Sylvester GARCIA MD 11/25/2019 7:48:52 AM Electronically signed by Sylvester GARCIA MD Number of Addenda: 0 Note Initiated On: 11/25/2019 7:27 AM Estimated Blood Loss: Estimated blood loss: none.
[2019-11-25 08:25] VITALS: BP 129/88
== END 2019-11-25 08:34 | disposition home or self-care (01) ==
LOC: M OPP 06:58
PROVIDERS: ATTEND Internal Medicine Gastroenterology
DX: K58.9 Irritable bowel syndrome, unspecified (principal); K64.8 Other hemorrhoids; R93.3 Abnormal findings on diagnostic imaging of other parts of digestive tract; Z79.899 Other long term (current) drug therapy

== ENCOUNTER → 2020-03-06 | Outpatient (REF) | payer OTHER ==
[2020-03-06 15:35] LABS: BASO # 0.1 10^3/uL (0.0-0.2); BASO % 0.8 % (0.0-1.0); EOS # 0.2 10^3/uL (0.0-0.5); EOS % 2.5 % (0.0-3.0); HEMATOCRIT 43.6 % (36.0-47.0); HEMOGLOBIN 14.3 g/dl (12.0-15.5); LYMPH # 2.7 10^3/uL (1.5-5.0); LYMPH % 37.5 % (24.0-44.0); MEAN CORPUSCULAR HEMOGLOBIN 30.4 pg (27.0-33.0); MEAN CORPUSCULAR HGB CONC 32.8 g/dl (32.0-36.5); MEAN CORPUSCULAR VOLUME 92.6 fl (80.0-96.0); MONO # 0.5 10^3/uL (0.0-0.8); MONO % 7.4 % (0.0-5.0); NEUTROPHILS # 3.7 10^3/uL (1.5-8.5); NEUTROPHILS % 51.4 % (36.0-66.0); PLATELET COUNT, AUTOMATED 411 10^3/uL (150-450); RED BLOOD COUNT 4.71 10^6/uL (4.00-5.40); WHITE BLOOD COUNT 7.1 10^3/uL (4.0-10.0)
[2020-03-06 15:58] LABS: HEMOGLOBIN A1c 5.3 %
[2020-03-06 16:06] LABS: ALBUMIN 4.3 GM/DL (3.2-5.2); ALT/SGPT 19 U/L (12-78); BILIRUBIN,TOTAL 0.4 MG/DL (0.2-1.0); BLOOD UREA NITROGEN 10 MG/DL (7-18); CALCIUM LEVEL 9.3 MG/DL (8.5-10.1); CARBON DIOXIDE LEVEL 31 MEQ/L (21-32); CHLORIDE LEVEL 107 MEQ/L (98-107); CHOLESTEROL LEVEL 160 MG/DL (<200); CREATININE FOR GFR 0.82 MG/DL (0.55-1.30); FREE T4 0.92 NG/DL (0.76-1.46); GLOMERULAR FILTRATION RATE > 60.0 (>60); GLUCOSE, FASTING 85 MG/DL (70-100); HDL CHOLESTEROL 50 MG/DL (>40); LDL CHOLESTEROL 95 MG/DL (<100); NON-HDL-C 110 MG/DL; SODIUM LEVEL 141 MEQ/L (136-145); TOTAL PROTEIN 7.2 GM/DL (6.4-8.2); TRIGLYCERIDES LEVEL 73 MG/DL (<150)
== END ==
LOC: M SFHCPLAZ 13:08
PROVIDERS: ATTEND Physician Assistant Medical
DX: K21.9 Gastro-esophageal reflux disease without esophagitis (principal); Z68.34 Body mass index [BMI] 34.0-34.9, adult; Z13.220 Encounter for screening for lipoid disorders

== ENCOUNTER → 2020-05-23 | Outpatient (REF) | payer OTHER ==
[2020-07-10 21:57] LABS: BASO # 0.1 10^3/uL (0.0-0.2); EOS # 0.2 10^3/uL (0.0-0.5); EOS % 2.3 % (0.0-3.0); HEMATOCRIT 45.2 % (36.0-47.0); HEMOGLOBIN 14.9 g/dl (12.0-15.5); LYMPH # 2.6 10^3/uL (1.5-5.0); LYMPH % 31.4 % (24.0-44.0); MEAN CORPUSCULAR HEMOGLOBIN 30.5 pg (27.0-33.0); MEAN CORPUSCULAR VOLUME 92.6 fl (80.0-96.0); MONO # 0.6 10^3/uL (0.0-0.8); MONO % 7.2 % (0.0-5.0); NEUTROPHILS # 4.7 10^3/uL (1.5-8.5); NEUTROPHILS % 57.6 % (36.0-66.0); PLATELET COUNT, AUTOMATED 421 10^3/uL (150-450); RED BLOOD COUNT 4.88 10^6/uL (4.00-5.40); WHITE BLOOD COUNT 8.1 10^3/uL (4.0-10.0)
[2020-07-17 04:17] LABS: ALBUMIN 4.2 GM/DL (3.2-5.2); ALT/SGPT 18 U/L (12-78); BILIRUBIN,TOTAL 0.5 MG/DL (0.2-1.0); BLOOD UREA NITROGEN 9 MG/DL (7-18); CALCIUM LEVEL 10.4 MG/DL (8.5-10.1); CARBON DIOXIDE LEVEL 31 MEQ/L (21-32); CHLORIDE LEVEL 106 MEQ/L (98-107); CREATININE FOR GFR 0.87 MG/DL (0.55-1.30); FREE T4 0.92 NG/DL (0.76-1.46); GLOMERULAR FILTRATION RATE > 60.0 (>60); GLUCOSE, FASTING 63 MG/DL (70-100); HEMOGLOBIN A1c 5.2 %; POTASSIUM SERUM 4.9 MEQ/L (3.5-5.1); SODIUM LEVEL 139 MEQ/L (136-145); TOTAL PROTEIN 7.3 GM/DL (6.4-8.2)
== END ==
LOC: M SFHCPLAZ 09:21
PROVIDERS: ATTEND Physician Assistant Medical
DX: I10 Essential (primary) hypertension (principal); E66.9 Obesity, unspecified

== ENCOUNTER → 2020-10-10 | Outpatient (CLI) | payer OTHER ==
--- NOTE | 2020-10-10 15:24 | REPPI ---
INDICATION: LEFT FOOT PAIN COMPARISON: None. TECHNIQUE: AP, lateral, bilateral oblique views left foot. FINDINGS: Generalized age-related degenerative changes primarily involve the 1st toe include subchondral sclerosis and minimal joint space narrowing at the MTP and interphalangeal joint. No acute fracture or dislocation. Surrounding soft tissues are unremarkable. IMPRESSION: Mild degenerative changes primarily involving the 1st toe.. No acute fracture or dislocation. <Electronically signed by Christophe Carreno > 10/10/20 [id number]
== END ==
LOC: M PLAIMG 12:27
PROVIDERS: ATTEND Physician Assistant Medical
DX: M25.572 Pain in left ankle and joints of left foot (principal)

== ENCOUNTER → 2020-10-10 | Outpatient (REF) | payer OTHER ==
[2020-10-10 16:04] LABS: BASO # 0.1 10^3/uL (0.0-0.2); BASO % 0.8 % (0.0-1.0); EOS # 0.1 10^3/uL (0.0-0.5); EOS % 1.4 % (0.0-3.0); HEMATOCRIT 44.5 % (36.0-47.0); HEMOGLOBIN 14.4 g/dl (12.0-15.5); LYMPH % 31.1 % (24.0-44.0); MEAN CORPUSCULAR HEMOGLOBIN 30.1 pg (27.0-33.0); MEAN CORPUSCULAR HGB CONC 32.4 g/dl (32.0-36.5); MEAN CORPUSCULAR VOLUME 92.9 fl (80.0-96.0); MONO # 0.5 10^3/uL (0.0-0.8); MONO % 7.1 % (0.0-5.0); NEUTROPHILS # 3.8 10^3/uL (1.5-8.5); NEUTROPHILS % 59.3 % (36.0-66.0); PLATELET COUNT, AUTOMATED 361 10^3/uL (150-450); RED BLOOD COUNT 4.79 10^6/uL (4.00-5.40); WHITE BLOOD COUNT 6.4 10^3/uL (4.0-10.0)
[2020-10-10 16:10] LABS: ALBUMIN 4.3 GM/DL (3.2-5.2); ALT/SGPT 14 U/L (12-78); BILIRUBIN,TOTAL 0.5 MG/DL (0.2-1.0); BLOOD UREA NITROGEN 8 MG/DL (7-18); CALCIUM LEVEL 9.7 MG/DL (8.5-10.1); CARBON DIOXIDE LEVEL 29 MEQ/L (21-32); CHLORIDE LEVEL 107 MEQ/L (98-107); GLOMERULAR FILTRATION RATE > 60.0 (>60); GLUCOSE, FASTING 86 MG/DL (70-100); POTASSIUM SERUM 4.9 MEQ/L (3.5-5.1); SODIUM LEVEL 138 MEQ/L (136-145); TOTAL PROTEIN 7.2 GM/DL (6.4-8.2)
[2020-10-10 16:20] LABS: PTH INTACT 18.8 PG/ML (18.5-88.0); TOTAL 25(OH) VITAMIN D 54.9 NG/ML (30.0-100.0)
== END ==
LOC: M SFHCPLAZ 12:27
PROVIDERS: ATTEND Physician Assistant Medical
DX: I10 Essential (primary) hypertension (principal); E55.9 Vitamin D deficiency, unspecified

== ENCOUNTER → 2020-10-16 | Outpatient (REF) | payer OTHER | LOC: M SFHCWAGY 17:36 | PROVIDERS: ATTEND Specialist | DX: Z01.419 Encounter for gynecological examination (general) (routine) without abnormal findings (principal) ==

== ENCOUNTER → 2021-03-06 | Outpatient (REF) | payer OTHER ==
[2021-03-06 15:47] LABS: ALBUMIN 4.4 GM/DL (3.2-5.2); ALT/SGPT 15 U/L (12-78); BILIRUBIN,TOTAL 0.4 MG/DL (0.2-1.0); BLOOD UREA NITROGEN 10 MG/DL (7-18); CARBON DIOXIDE LEVEL 28 MEQ/L (21-32); CHLORIDE LEVEL 107 MEQ/L (98-107); CHOLESTEROL LEVEL 175 MG/DL (<200); CHOLESTEROL RISK RATIO 2.916 (<5); CREATININE FOR GFR 0.76 MG/DL (0.55-1.30); GLOMERULAR FILTRATION RATE > 60.0 (>60); GLUCOSE, FASTING 91 MG/DL (70-100); HDL CHOLESTEROL 60 MG/DL (>40); LDL CHOLESTEROL 106 MG/DL (<100); NON-HDL-C 115 MG/DL; SODIUM LEVEL 140 MEQ/L (136-145); TOTAL PROTEIN 7.4 GM/DL (6.4-8.2); TRIGLYCERIDES LEVEL 45 MG/DL (<150)
[2021-03-06 15:54] LABS: PTH INTACT 36.7 PG/ML (18.5-88.0); TOTAL 25(OH) VITAMIN D 47.4 NG/ML (30.0-100.0)
== END ==
LOC: M SFHCPLAZ 12:36
PROVIDERS: ATTEND Physician Assistant Medical
DX: Z13.220 Encounter for screening for lipoid disorders (principal); E55.9 Vitamin D deficiency, unspecified

== ENCOUNTER → 2021-03-06 | Outpatient (CLI) | payer OTHER ==
--- NOTE | 2021-03-06 15:55 | REPPI ---
INDICATION: M25.551 PAIN IN RIGHT HIP M25.511 ARTHRALGIA OF RIGHT SHOULD COMPARISON: None. TECHNIQUE: Three views right shoulder. FINDINGS: There is no evidence of acute fracture, dislocation, or intrinsic bone disease.There is an os acromiale present. The joint spaces appear normal. IMPRESSION: No fracture or dislocation. Os acromiale. This is associated with increased incidence of rotator cuff pathology. Further evaluation may be made with MRI if clinically indicated. <Electronically signed by Kale Crowley > 03/06/21 [id number]
--- NOTE | 2021-03-06 15:55 | REPPI ---
INDICATION: M25.551 PAIN IN RIGHT HIP M25.511 ARTHRALGIA OF RIGHT SHOULD. COMPARISON: 05/08/2015 TECHNIQUE: AP view of the pelvis with neutral and frog-lateral views of the right and left hip. FINDINGS: Osseous structures, joint spaces, and surrounding soft tissues are essentially symmetric and age-appropriate/normal. No evidence for acute or healed injury. No obvious congenital abnormality. No overt arthritic changes are appreciated. IMPRESSION: Symmetric age-appropriate pelvis/bilateral hip series. <Electronically signed by Christophe Carreno > 03/06/21 [id number]
== END ==
LOC: M PLAIMG 12:37
PROVIDERS: ATTEND Physician Assistant Medical
DX: M25.551 Pain in right hip (principal); M25.511 Pain in right shoulder

== ENCOUNTER → 2021-05-31 | Outpatient (CLI) | payer OTHER ==
[~2021-05-31] MED LIST changes: +OMEP40CA4 PO; -OMEP40CA97 PO
--- NOTE | 2021-05-31 10:58 | REP ---
INDICATION: N63.20 LT BREAST LUMP. Patient gives a history of 2 palpable lumps in the left breast. A large area of palpable abnormality at 1 o'clock is associated with tenderness approximately 2 in in diameter present for 1 week. A 2nd lump is reported at 3 o'clock, grape size mobile nontender. Present for 1 month. COMPARISON: No comparison breast imaging. TECHNIQUE: Skin markers were affixed to the skin at the site of the palpable lumps by the patient. Routine views of the left breast were augmented by magnified focal spot-compression CC, MLO, and non magnified true mL views. 3D tomography is deployed and targeted left breast ultrasound is carried. This mammogram was interpreted with the aid of an FDA-approved computer-aided detection system. FINDINGS: Breast parenchyma is heterogeneously dense in a pattern which may inhibit the sensitivity of mammography. No mammographically visible mass is seen at the site of either palpable lump or elsewhere in the left breast. No architectural distortion, worrisome skin change, or suspicious microcalcification is seen. No significant mammographic finding. The Volpara volumetric breast density pattern is C. Targeted ultrasound: Targeted left breast sonography at the site of the palpable lumps demonstrates somewhat heterogeneous fibroglandular background echotexture. No cyst or mass is seen in either area. No acoustic shadowing or other significant sonographic finding. IMPRESSION: BIRADS/ACR category 1 negative left breast mammographic and sonographic findings. This patient's Tyrer-Cuzick lifetime breast cancer risk assessment score is 15.2%. RECOMMENDATION: Annual screening mammography recommended (for women over 40). Clinical follow-up is advised. The patient letter being requested is M2 dense. <Electronically signed by Choco Penaloaz > 05/31/21 [id number]
== END ==
LOC: M WHC 09:10
PROVIDERS: ATTEND Nurse Practitioner Women's Health
DX: N63.20 Unspecified lump in the left breast, unspecified quadrant (principal)
CPT/HCPCS: 76642; 77065; G0279

== ENCOUNTER → 2021-06-17 | Outpatient (CLI) | payer OTHER ==
--- NOTE | 2021-06-17 17:45 | REP ---
INDICATION: PAIN IN SHOULDER. COMPARISON: Radiographs 03/06/2021. TECHNIQUE: Coronal oblique T1, T2 fat sat, sagittal oblique T2 fat sat, axial T2 fat sat, gradient echo. FINDINGS: Rotator cuff: There is partial full-thickness tear of the supraspinatus tendon. Acromioclavicular joint: There are mild hypertrophic changes at the acromioclavicular joint. Acromion: Type 2 Biceps Tendon: In bicipital groove, no tenosynovitis. Hill Sach's deformity: None. Deltoid muscle: No abnormal signal. Biceps labral complex: Intact. Labrum: No tear. Cartilage: No defects. Bone marrow: A subcentimeter subcortical cyst is seen in the anterior humeral head. Part of the cyst extends through the cortex. Joint fluid: There is no glenohumeral joint effusion. There is mild fluid in the subacromial/subdeltoid bursae. IMPRESSION: Five partial full-thickness tear supraspinatus tendon. Mild hypertrophic degenerative changes acromioclavicular joint. No evidence of a labral tear. <Electronically signed by Kale Crowley > 06/17/21 [id number]
== END ==
LOC: M RAD 12:59
PROVIDERS: ATTEND Physician Assistant
DX: S46.011A Strain of muscle(s) and tendon(s) of the rotator cuff of right shoulder, initial encounter (principal); X58.XXXA Exposure to other specified factors, initial encounter; Y92.89 Other specified places as the place of occurrence of the external cause; M19.011 Primary osteoarthritis, right shoulder

== ENCOUNTER 2021-07-04 13:07 | Outpatient (RCR) | payer OTHER | END 2021-07-05 | LOC: M PT 13:07 | PROVIDERS: ATTEND Physician Assistant | DX: M75.41 Impingement syndrome of right shoulder (principal) ==

== ENCOUNTER → 2021-07-19 | Outpatient (CLI) | payer OTHER ==
--- NOTE | 2021-07-19 12:22 | REP ---
INDICATION: CERVICAL RADICULOPATHY COMPARISON: None. TECHNIQUE: AP, lateral, bilateral oblique, and open-mouth views. FINDINGS: Alignment and lordosis is maintained. There is no evidence for acute fracture / compression injury or subluxation. No significant degenerative changes are appreciated. Oblique views demonstrate patent neural foramen. Open mouth view demonstrates normal C1-C2 articulation and odontoid process. IMPRESSION: Normal cervical spine series. <Electronically signed by Christophe Carreno > 07/19/21 [id number]
== END ==
LOC: M SOG 11:49
PROVIDERS: ATTEND Orthopaedic Surgery Sports Medicine
DX: M54.12 Radiculopathy, cervical region (principal)

== ENCOUNTER 2021-07-20 13:13 | Outpatient (RCR) | payer OTHER | END 2021-08-05 | LOC: M PT 13:13 | PROVIDERS: ATTEND Physician Assistant | DX: M75.41 Impingement syndrome of right shoulder (principal) ==

== ENCOUNTER → 2021-11-01 | Outpatient (CLI) | payer OTHER ==
[2021-11-01 15:23] LABS: BASO # 0.1 10^3/uL (0.0-0.2); BASO % 0.6 % (0.0-1.0); EOS # 0.1 10^3/uL (0.0-0.5); EOS % 0.9 % (0.0-3.0); HEMOGLOBIN 13.6 g/dl (12.0-15.5); LYMPH # 2.2 10^3/uL (1.5-5.0); MEAN CORPUSCULAR HGB CONC 33.2 g/dl (32.0-36.5); MEAN CORPUSCULAR VOLUME 90.5 fl (80.0-96.0); MONO # 0.5 10^3/uL (0.0-0.8); MONO % 6.3 % (2.0-8.0); NEUTROPHILS # 5.1 10^3/uL (1.5-8.5); NEUTROPHILS % 63.9 % (36.0-66.0); PLATELET COUNT, AUTOMATED 412 10^3/uL (150-450); RED BLOOD COUNT 4.53 10^6/uL (4.00-5.40); WHITE BLOOD COUNT 7.9 10^3/uL (4.0-10.0)
[2021-11-01 15:52] LABS: ALBUMIN 4.1 GM/DL (3.2-5.2); ALT/SGPT 14 U/L (12-78); BILIRUBIN,TOTAL 0.5 MG/DL (0.2-1.0); BLOOD UREA NITROGEN 9 MG/DL (7-18); CALCIUM LEVEL 9.3 MG/DL (8.5-10.1); CARBON DIOXIDE LEVEL 27 MEQ/L (21-32); CHLORIDE LEVEL 107 MEQ/L (98-107); CREATININE FOR GFR 0.71 MG/DL (0.55-1.30); GLOMERULAR FILTRATION RATE > 60.0 (>60); GLUCOSE, FASTING 85 MG/DL (70-100); POTASSIUM SERUM 4.4 MEQ/L (3.5-5.1); SODIUM LEVEL 140 MEQ/L (136-145); TOTAL PROTEIN 6.9 GM/DL (6.4-8.2)
== END ==
LOC: M PLALAB 13:33
PROVIDERS: ATTEND Physician Assistant Medical
DX: I10 Essential (primary) hypertension (principal)

== ENCOUNTER → 2021-11-01 | Outpatient (CLI) | payer OTHER | LOC: M PLAIMG 12:34 | PROVIDERS: ATTEND Orthopaedic Surgery | DX: M54.2 Cervicalgia (principal) ==

== ENCOUNTER → 2021-12-19 | Outpatient (CLI) | payer OTHER ==
[2021-12-19 15:39] LABS: CALCIUM LEVEL 9.5 MG/DL (8.5-10.1)
[2021-12-19 17:32] LABS: TOTAL 25(OH) VITAMIN D 33.1 NG/ML (30.0-100.0)
[2021-12-19 17:33] LABS: PTH INTACT 33.4 PG/ML (18.5-88.0)
== END ==
LOC: M PLALAB 13:06
PROVIDERS: ATTEND Physician Assistant Medical
DX: E55.9 Vitamin D deficiency, unspecified (principal)

== ENCOUNTER → 2022-05-01 | Outpatient (CLI) | payer OTHER | LOC: M PLAIMG 13:27 | PROVIDERS: ATTEND Physician Assistant Medical | DX: M54.41 Lumbago with sciatica, right side (principal) ==

== ENCOUNTER → 2022-05-01 | Outpatient (CLI) | payer OTHER | LOC: M PLAIMG 13:13 | PROVIDERS: ATTEND Physician Assistant Medical | DX: J32.0 Chronic maxillary sinusitis (principal); J30.2 Other seasonal allergic rhinitis ==

== ENCOUNTER 2022-05-27 11:40 | Outpatient (RCR) | payer OTHER | END 2022-06-05 | LOC: M PT 11:40 | PROVIDERS: ATTEND Physician Assistant Medical | DX: M54.41 Lumbago with sciatica, right side (principal) ==

== ENCOUNTER → 2022-07-25 | Outpatient (REF) | LOC: M EMP 10:52 | PROVIDERS: ATTEND Family Medicine | DX: Z11.52 Encounter for screening for COVID-19 (principal) ==

== ENCOUNTER → 2023-02-17 | Outpatient (REF) | LOC: M EMP 10:21 | PROVIDERS: ATTEND Family Medicine | DX: Z11.52 Encounter for screening for COVID-19 (principal) ==

== ENCOUNTER → 2023-02-24 | Outpatient (REF) | LOC: M EMP 13:24 | PROVIDERS: ATTEND Family Medicine | DX: Z11.52 Encounter for screening for COVID-19 (principal) ==

== ENCOUNTER → 2023-03-31 | Outpatient (CLI) | payer OTHER ==
[2023-03-31 19:19] LABS: ALBUMIN 4.2 G/DL (3.2-5.2); ALKALINE PHOSPHATASE 55 U/L (46-116); ALT/SGPT 14 U/L (7.0-40); AST/SGOT 10 U/L (<34); BILIRUBIN,TOTAL 0.4 MG/DL (0.3-1.2); BLOOD UREA NITROGEN 11 MG/DL (9-23); CALCIUM LEVEL 9.4 MG/DL (8.5-10.1); CARBON DIOXIDE LEVEL 28 MMOL/L (20-31); CHLORIDE LEVEL 106 MMOL/L (98-107); CREATININE FOR GFR 0.69 MG/DL (0.55-1.30); GLOMERULAR FILTRATION RATE > 60.0 (>60); GLUCOSE, FASTING 90 MG/DL (60-100); POTASSIUM SERUM 4.2 MMOL/L (3.5-5.1); SODIUM LEVEL 139 MMOL/L (136-145); TOTAL PROTEIN 6.5 G/DL (5.7-8.2)
[2023-03-31 19:21] LABS: BASO # 0.1 10^3/uL (0.0-0.2); BASO % 0.9 % (0.0-1.0); EOS # 0.1 10^3/uL (0.0-0.5); EOS % 2.2 % (0.0-3.0); HEMATOCRIT 42.8 % (36.0-47.0); HEMOGLOBIN 13.8 g/dl (12.0-15.5); LYMPH # 2.5 10^3/uL (1.5-5.0); LYMPH % 39.1 % (24.0-44.0); MEAN CORPUSCULAR HEMOGLOBIN 30.3 pg (27.0-33.0); MEAN CORPUSCULAR HGB CONC 32.2 g/dl (32.0-36.5); MEAN CORPUSCULAR VOLUME 93.9 fl (80.0-96.0); MONO # 0.4 10^3/uL (0.0-0.8); MONO % 6.8 % (2.0-8.0); NEUTROPHILS # 3.3 10^3/uL (1.5-8.5); NEUTROPHILS % 50.8 % (36.0-66.0); PLATELET COUNT, AUTOMATED 320 10^3/uL (150-450); RED BLOOD COUNT 4.56 10^6/uL (4.00-5.40); WHITE BLOOD COUNT 6.5 10^3/uL (4.0-10.0)
[2023-03-31 19:24] LABS: TOTAL 25(OH) VITAMIN D 38.4 NG/ML (20.0-100.0)
== END ==
LOC: M WUC 11:20
PROVIDERS: ATTEND Physician Assistant Medical
DX: E55.9 Vitamin D deficiency, unspecified (principal); I10 Essential (primary) hypertension

== ENCOUNTER → 2023-04-02 | Outpatient (CLI) | payer OTHER ==
[2023-04-02 16:33] LABS: BASO # 0.1 10^3/uL (0.0-0.2); EOS # 0.1 10^3/uL (0.0-0.5); EOS % 1.7 % (0.0-3.0); HEMATOCRIT 43.7 % (36.0-47.0); HEMOGLOBIN 14.6 g/dl (12.0-15.5); LYMPH # 2.7 10^3/uL (1.5-5.0); LYMPH % 32.3 % (24.0-44.0); MEAN CORPUSCULAR HEMOGLOBIN 30.4 pg (27.0-33.0); MEAN CORPUSCULAR HGB CONC 33.4 g/dl (32.0-36.5); MONO # 0.6 10^3/uL (0.0-0.8); NEUTROPHILS # 4.8 10^3/uL (1.5-8.5); NEUTROPHILS % 57.8 % (36.0-66.0); PLATELET COUNT, AUTOMATED 355 10^3/uL (150-450); WHITE BLOOD COUNT 8.3 10^3/uL (4.0-10.0)
[2023-04-02 16:39] LABS: C REACTIVE PROTEIN QUANTITATIV < 0.40 MG/DL (<1.0); IRON (FE) 108 UG/DL (50-170)
[2023-04-02 16:41] LABS: RHEUMATOID FACTOR QUANT < 3.5 IU/ML (<14)
[2023-04-02 16:42] LABS: FERRITIN 28.7 NG/ML (7.3-270.7)
[2023-04-02 17:07] LABS: ERYTHROCYTE SEDIMENTATION RATE 12 mm/hr (0-20)
[2023-04-05 01:07] LABS: ANA (HEP2) Negative (.); CYCLIC CITRULLINATED PEPTIDE 4 units (0-19)
== END ==
LOC: M PLALAB 12:57
PROVIDERS: ATTEND Physician Assistant Medical
DX: M65.9 Synovitis and tenosynovitis, unspecified (principal); I10 Essential (primary) hypertension; M54.41 Lumbago with sciatica, right side

== ENCOUNTER → 2023-04-02 | Outpatient (REF) | payer OTHER | LOC: M SFHCPLAZ 12:11 | PROVIDERS: ATTEND Physician Assistant Medical | DX: Z53.9 Procedure and treatment not carried out, unspecified reason (principal) ==

== ENCOUNTER → 2023-07-10 | Outpatient (REF) | payer OTHER | LOC: M PLALAB 09:39 | PROVIDERS: ATTEND Specialist | DX: Z01.419 Encounter for gynecological examination (general) (routine) without abnormal findings (principal) ==

== ENCOUNTER → 2023-08-04 | Outpatient (CLI) | payer OTHER | LOC: M PLAIMG 13:59 → M PLALAB 13:59 | PROVIDERS: ATTEND Physician Assistant Medical | DX: M51.36 Other intervertebral disc degeneration, lumbar region (principal) ==

== ENCOUNTER → 2023-08-13 | Outpatient (CLI) | payer OTHER ==
[2023-08-13 15:19] LABS: FOLLICLE STIMULATING HORMONE 3.9 mIU/ML; THYROID STIMULATING HORMONE 1.857 uIU/ML (0.55-4.78)
[2023-08-13 15:20] LABS: LUTEINIZING HORMONE 16.3 mIU/ML; PROLACTIN 11.17 NG/ML
[2023-08-13 15:21] LABS: FREE T4 0.91 NG/DL (0.89-1.76); PROGESTERONE 0.52 NG/ML
== END ==
LOC: M WUC 09:51
PROVIDERS: ATTEND Specialist
DX: N92.6 Irregular menstruation, unspecified (principal)

== ENCOUNTER → 2023-11-05 | Outpatient (REF) | payer OTHER ==
[2023-11-05 17:33] LABS: BASO # 0.1 10^3/uL (0.0-0.2); EOS # 0.1 10^3/uL (0.0-0.5); HEMATOCRIT 41.7 % (36.0-47.0); HEMOGLOBIN 13.8 g/dl (12.0-15.5); LYMPH # 3.1 10^3/uL (1.5-5.0); LYMPH % 45.3 % (24.0-44.0); MEAN CORPUSCULAR HEMOGLOBIN 30.5 pg (27.0-33.0); MEAN CORPUSCULAR HGB CONC 33.1 g/dl (32.0-36.5); MEAN CORPUSCULAR VOLUME 92.3 fl (80.0-96.0); MONO # 0.4 10^3/uL (0.0-0.8); MONO % 5.2 % (2.0-8.0); NEUTROPHILS # 3.2 10^3/uL (1.5-8.5); NEUTROPHILS % 46.4 % (36.0-66.0); PLATELET COUNT, AUTOMATED 404 10^3/uL (150-450); RED BLOOD COUNT 4.52 10^6/uL (4.00-5.40); WHITE BLOOD COUNT 6.9 10^3/uL (4.0-10.0)
[2023-11-05 17:35] LABS: TOTAL 25(OH) VITAMIN D 29.1 NG/ML (20.0-100.0)
[2023-11-05 18:25] LABS: ALBUMIN 4.3 G/DL (3.2-5.2); ALKALINE PHOSPHATASE 59 U/L (46-116); ALT/SGPT 14 U/L (7.0-40); AST/SGOT 11 U/L (<34); BILIRUBIN,TOTAL 0.4 MG/DL (0.3-1.2); BLOOD UREA NITROGEN 8 MG/DL (9-23); CALCIUM LEVEL 9.4 MG/DL (8.5-10.1); CARBON DIOXIDE LEVEL 31 MMOL/L (20-31); CHLORIDE LEVEL 106 MMOL/L (98-107); CREATININE FOR GFR 0.74 MG/DL (0.55-1.30); GLOMERULAR FILTRATION RATE > 60.0 (>60); GLUCOSE, FASTING 90 MG/DL (60-100); POTASSIUM SERUM 4.1 MMOL/L (3.5-5.1); PTH INTACT 40.6 PG/ML (18.5-88.0); SODIUM LEVEL 140 MMOL/L (136-145); TOTAL PROTEIN 6.8 G/DL (5.7-8.2)
== END ==
LOC: M LABWUC 16:43
PROVIDERS: ATTEND Physician Assistant Medical
DX: I10 Essential (primary) hypertension (principal); J30.2 Other seasonal allergic rhinitis; E55.9 Vitamin D deficiency, unspecified

== ENCOUNTER → 2024-02-04 | Outpatient (CLI) | payer OTHER ==
[2024-02-04 16:29] LABS: CK-MB VALUE MASS < 1.0 NG/ML (<3.6)
[2024-02-04 16:31] LABS: CHOLESTEROL LEVEL 155 MG/DL (<200); CHOLESTEROL RISK RATIO 2.71 (<5); CPK CREATINE PHOSPHOKINASE 104 U/L (34-145); HDL CHOLESTEROL 57.1 MG/DL (>40); LDL CHOLESTEROL 85.5 MG/DL (<100); MB/CK RELATIVE INDEX 0.96 (< OR =4); NON-HDL-C 97.9 MG/DL; TRIGLYCERIDES LEVEL 62 MG/DL (<150)
== END ==
LOC: M PLALAB 12:55
PROVIDERS: ATTEND Physician Assistant Medical
DX: R07.89 Other chest pain (principal)

== ENCOUNTER 2024-05-08 21:19 | Emergency (ER) | payer OTHER ==
[~2024-05-08] VITALS: Ht 162.6 cm; Wt 75.4 kg
[~2024-05-08 21:19] MED LIST changes: -AZEL0.055 NARES; +AZEL1SPR4 NARES; +ONDA-282 PO; -ONDA4TAB6 PO
[2024-05-08 21:20] VITALS: BP 138/87; TEMP 98.2; O2SAT 97
[2024-05-08 22:20] LABS: BASO # 0.1 10^3/uL (0.0-0.2); BASO % 0.5 % (0.0-1.0); EOS # 0.1 10^3/uL (0.0-0.5); EOS % 0.7 % (0.0-3.0); HEMATOCRIT 40.5 % (36.0-47.0); HEMOGLOBIN 13.9 g/dl (12.0-15.5); LYMPH # 2.8 10^3/uL (1.5-5.0); LYMPH % 25.7 % (24.0-44.0); MEAN CORPUSCULAR HEMOGLOBIN 30.7 pg (27.0-33.0); MEAN CORPUSCULAR HGB CONC 34.3 g/dl (32.0-36.5); MEAN CORPUSCULAR VOLUME 89.4 fl (80.0-96.0); MONO # 0.7 10^3/uL (0.0-0.8); MONO % 5.9 % (2.0-8.0); NEUTROPHILS # 7.3 10^3/uL (1.5-8.5); NEUTROPHILS % 66.8 % (36.0-66.0); PLATELET COUNT, AUTOMATED 397 10^3/uL (150-450); RED BLOOD COUNT 4.53 10^6/uL (4.00-5.40)
[2024-05-08 22:33] LABS: INR 1.13; PROTHROMBIN TIME 14.2 SECONDS (12.5-14.5)
[2024-05-08 22:52] LABS: LIPASE 32 U/L (12-53)
[2024-05-08 22:53] LABS: CPK CREATINE PHOSPHOKINASE 79 U/L (34-145)
[2024-05-08 22:54] LABS: ALBUMIN 4.5 G/DL (3.2-5.2); ALKALINE PHOSPHATASE 57 U/L (46-116); ALT/SGPT 11 U/L (7.0-40); AST/SGOT < 8 U/L (<34); BILIRUBIN,DIRECT 0.2 MG/DL (<0.4); BILIRUBIN,TOTAL 0.5 MG/DL (0.3-1.2); CK-MB VALUE MASS < 1.0 NG/ML (<3.6); MB/CK RELATIVE INDEX 1.26 (< OR =4); TOTAL PROTEIN 6.7 G/DL (5.7-8.2)
== END 2024-05-09 02:15 | disposition left against medical advice (07) ==
LOC: M ED 21:19
DX: Z53.21 Procedure and treatment not carried out due to patient leaving prior to being seen by health care provider (principal)

== ENCOUNTER 2024-05-11 12:19 | Observation (INO) | payer OTHER ==
[~2024-05-11] VITALS: Ht 162.6 cm; Wt 75.0 kg
[2024-05-11] MEDS ORDERED: AMLO2.5T3 (12:35)
[2024-05-11 16:20] LABS: BASO # 0.1 10^3/uL (0.0-0.2); BASO % 0.7 % (0.0-1.0); EOS # 0.1 10^3/uL (0.0-0.5); HEMATOCRIT 43.3 % (36.0-47.0); HEMOGLOBIN 14.6 g/dl (12.0-15.5); LYMPH # 2.8 10^3/uL (1.5-5.0); LYMPH % 29.6 % (24.0-44.0); MEAN CORPUSCULAR HEMOGLOBIN 30.4 pg (27.0-33.0); MEAN CORPUSCULAR HGB CONC 33.7 g/dl (32.0-36.5); MONO # 0.5 10^3/uL (0.0-0.8); MONO % 5.3 % (2.0-8.0); NEUTROPHILS % 63.1 % (36.0-66.0); PLATELET COUNT, AUTOMATED 427 10^3/uL (150-450); RED BLOOD COUNT 4.81 10^6/uL (4.00-5.40); WHITE BLOOD COUNT 9.5 10^3/uL (4.0-10.0)
[2024-05-11 16:44] LABS: LIPASE 32 U/L (12-53)
[2024-05-11 16:49] LABS: ALBUMIN 4.7 G/DL (3.2-5.2); ALKALINE PHOSPHATASE 66 U/L (46-116); ALT/SGPT 13 U/L (7.0-40); AST/SGOT 9 U/L (<34); BILIRUBIN,DIRECT 0.2 MG/DL (<0.4); BILIRUBIN,TOTAL 0.6 MG/DL (0.3-1.2); TOTAL PROTEIN 7.3 G/DL (5.7-8.2)
[2024-05-11 17:04] LABS: HCG, SERUM QUALITATIVE POSITIVE (NEGATIVE)
[2024-05-11] MEDS: ACETAMINOPHEN TAB 650MG DOSE (2X325MG) PO ONE (18:06)
[2024-05-11 18:13] LABS: HCG, SERUM QUANTITATIVE 740.6 MIU/ML (<4.2)
[2024-05-11] MEDS ORDERED: ACETAMINOPHEN 500 MG TAB PO PRN (20:45)
[2024-05-11] MEDS ORDERED: ONDANSETRON 4MG 2ML VIAL IV PRN (20:45)
[2024-05-11] MEDS: LR 1,000 ML IV SCH (21:05)
[2024-05-11] MEDS ORDERED: AMLO2.5T3 PO (21:32)
[2024-05-11] MEDS ORDERED: ALBU8.5H INH (21:32)
[2024-05-11] MEDS ORDERED: HOME MED LIST COMPLETE! XX SCH (21:35)
[2024-05-11 22:00] VITALS: BP 134/88; TEMP 97.6; O2SAT 99
[2024-05-12 06:00] VITALS: BP 144/75; TEMP 98.1; O2SAT 99
[2024-05-12 06:29] LABS: HEMATOCRIT 39.7 % (36.0-47.0); HEMOGLOBIN 13.4 g/dl (12.0-15.5); MEAN CORPUSCULAR HEMOGLOBIN 30.7 pg (27.0-33.0); MEAN CORPUSCULAR HGB CONC 33.8 g/dl (32.0-36.5); MEAN CORPUSCULAR VOLUME 90.8 fl (80.0-96.0); PLATELET COUNT, AUTOMATED 356 10^3/uL (150-450); RED BLOOD COUNT 4.37 10^6/uL (4.00-5.40); WHITE BLOOD COUNT 6.7 10^3/uL (4.0-10.0)
== END 2024-05-12 11:00 | disposition home or self-care (01) ==
LOC: M ED 12:19 → M ED INP 12:20 → M OBS 22:00
PROVIDERS: ADMIT Obstetrics & Gynecology; ATTEND Obstetrics & Gynecology
DX: R10.31 Right lower quadrant pain (principal); R10.2 Pelvic and perineal pain; N93.9 Abnormal uterine and vaginal bleeding, unspecified; R11.0 Nausea; Z32.01 Encounter for pregnancy test, result positive; R51.9 Headache, unspecified; R42 Dizziness and giddiness; I10 Essential (primary) hypertension; K58.9 Irritable bowel syndrome, unspecified; Z79.899 Other long term (current) drug therapy; Z88.2 Allergy status to sulfonamides

== ENCOUNTER → 2024-05-12 | Outpatient (REF) | payer OTHER ==
[~2024-05-12] MED LIST changes: +ALBU8.5H INH; +AMLO2.5T3; +AMLO2.5T3 PO
== END ==
LOC: M SFHCWAGY 15:28
PROVIDERS: ATTEND Specialist
DX: N92.6 Irregular menstruation, unspecified (principal)

== ENCOUNTER → 2024-05-13 | Outpatient (CLI) | payer OTHER | LOC: M PLALAB 11:03 | PROVIDERS: ATTEND Specialist | DX: N92.6 Irregular menstruation, unspecified (principal) ==

== ENCOUNTER 2024-05-14 15:04 | Outpatient (CLI) | payer OTHER ==
[~2024-05-14] VITALS: Ht 162.6 cm; Wt 75.3 kg
[2024-05-14 15:30] VITALS: BP 139/88; O2SAT 100
[2024-05-14] MEDS ORDERED: METHOTREXATE 50MG/2ML VIAL IM ONE (15:30)
[2024-05-14] MEDS: METHOTREXATE 50MG/2ML VIAL IM ONE (15:40)
[2024-05-14 16:50] VITALS: BP 118/81; O2SAT 99
== END 2024-05-14 16:50 ==
LOC: M INFU 15:04
PROVIDERS: ATTEND Specialist
DX: O00.91 Unspecified ectopic pregnancy with intrauterine pregnancy (principal); Z88.8 Allergy status to other drugs, medicaments and biological substances
CPT/HCPCS: 96372; J9260

== ENCOUNTER → 2024-05-17 | Outpatient (CLI) | payer OTHER | LOC: M PLALAB 12:03 | PROVIDERS: ATTEND Specialist | DX: O00.90 Unspecified ectopic pregnancy without intrauterine pregnancy (principal) ==

== ENCOUNTER → 2024-05-20 | Outpatient (CLI) | payer OTHER | LOC: M PLALAB 10:36 | PROVIDERS: ATTEND Specialist | DX: O00.90 Unspecified ectopic pregnancy without intrauterine pregnancy (principal) ==

== ENCOUNTER → 2024-05-24 | Outpatient (CLI) | payer OTHER | LOC: M PLALAB 11:09 | PROVIDERS: ATTEND Specialist | DX: O00.90 Unspecified ectopic pregnancy without intrauterine pregnancy (principal) ==

== ENCOUNTER → 2024-09-20 | Outpatient (REF) | payer OTHER | LOC: M SFHCPLAZ 09:46 | PROVIDERS: ATTEND Physician Assistant Medical | DX: E55.9 Vitamin D deficiency, unspecified (principal); R53.83 Other fatigue; O00.90 Unspecified ectopic pregnancy without intrauterine pregnancy ==

== ENCOUNTER → 2024-09-20 | Outpatient (CLI) | payer OTHER ==
[2024-09-20 14:13] LABS: BASO # 0.1 10^3/uL (0.0-0.2); BASO % 0.9 % (0.0-1.0); EOS # 0.1 10^3/uL (0.0-0.5); EOS % 1.5 % (0.0-3.0); HEMATOCRIT 43.1 % (36.0-47.0); HEMOGLOBIN 14.2 g/dl (12.0-15.5); LYMPH # 2.3 10^3/uL (1.5-5.0); MEAN CORPUSCULAR HGB CONC 32.9 g/dl (32.0-36.5); MEAN CORPUSCULAR VOLUME 90.9 fl (80.0-96.0); MONO # 0.5 10^3/uL (0.0-0.8); MONO % 7.9 % (2.0-8.0); NEUTROPHILS # 3.8 10^3/uL (1.5-8.5); NEUTROPHILS % 56.4 % (36.0-66.0); PLATELET COUNT, AUTOMATED 348 10^3/uL (150-450); RED BLOOD COUNT 4.74 10^6/uL (4.00-5.40); WHITE BLOOD COUNT 6.8 10^3/uL (4.0-10.0)
[2024-09-20 14:35] LABS: FERRITIN 34.1 NG/ML (7.3-270.7)
[2024-09-20 14:36] LABS: ALBUMIN 4.2 G/DL (3.2-5.2); ALKALINE PHOSPHATASE 56 U/L (35-104); ALT/SGPT 10 U/L (7.0-40); AST/SGOT 9 U/L (<34); BILIRUBIN,TOTAL 0.6 MG/DL (0.3-1.2); BLOOD UREA NITROGEN 16 MG/DL (9-23); CALCIUM LEVEL 9.9 MG/DL (8.5-10.1); CARBON DIOXIDE LEVEL 25 MMOL/L (20-31); CHLORIDE LEVEL 107 MMOL/L (98-107); CREATININE FOR GFR 0.77 MG/DL (0.55-1.30); GLOMERULAR FILTRATION RATE > 60.0 (>60); GLUCOSE, FASTING 93 MG/DL (60-100); IRON (FE) 119 UG/DL (50-170); POTASSIUM SERUM 5.1 MMOL/L (3.5-5.1); SODIUM LEVEL 141 MMOL/L (136-145); TOTAL 25(OH) VITAMIN D 27.4 NG/ML (20.0-100.0)
[2024-09-20 21:29] LABS: PTH INTACT 13.7 PG/ML (18.5-88.0)
[2024-09-22 11:27] LABS: QuantiFERON-TB Gold Plus NEGATIVE (NEGATIVE)
== END ==
LOC: M PLALAB 10:14
PROVIDERS: ATTEND Physician Assistant Medical
DX: Z00.00 Encounter for general adult medical examination without abnormal findings (principal); R05.3 Chronic cough; E55.9 Vitamin D deficiency, unspecified; R06.02 Shortness of breath; R53.83 Other fatigue; O00.90 Unspecified ectopic pregnancy without intrauterine pregnancy

== ENCOUNTER → 2024-12-08 | Outpatient (REF) | payer OTHER | LOC: M LAB REF 12:09 | PROVIDERS: ATTEND Physician Assistant | DX: R30.0 Dysuria (principal) ==

== ENCOUNTER → 2024-12-16 | Outpatient (CLI) | payer OTHER ==
[2024-12-16 16:14] LABS: BASO # 0.1 10^3/uL (0.0-0.2); BASO % 0.9 % (0.0-1.0); EOS # 0.1 10^3/uL (0.0-0.5); EOS % 1.3 % (0.0-3.0); HEMATOCRIT 40.8 % (36.0-47.0); HEMOGLOBIN 13.6 g/dl (12.0-15.5); LYMPH # 2.8 10^3/uL (1.5-5.0); LYMPH % 35.6 % (24.0-44.0); MEAN CORPUSCULAR HEMOGLOBIN 30.8 pg (27.0-33.0); MEAN CORPUSCULAR HGB CONC 33.3 g/dl (32.0-36.5); MEAN CORPUSCULAR VOLUME 92.5 fl (80.0-96.0); MONO # 0.5 10^3/uL (0.0-0.8); MONO % 6.2 % (2.0-8.0); NEUTROPHILS # 4.3 10^3/uL (1.5-8.5); NEUTROPHILS % 55.7 % (36.0-66.0); PLATELET COUNT, AUTOMATED 399 10^3/uL (150-450); RED BLOOD COUNT 4.41 10^6/uL (4.00-5.40); WHITE BLOOD COUNT 7.8 10^3/uL (4.0-10.0)
[2024-12-16 16:44] LABS: IRON (FE) 198 UG/DL (50-170)
[2024-12-16 16:45] LABS: PTH INTACT 29.2 PG/ML (18.5-88.0)
[2024-12-16 16:49] LABS: FERRITIN 13.3 NG/ML (7.3-270.7)
[2024-12-17 13:09] LABS: ALBUMIN 4.2 G/DL (3.2-5.2); ALKALINE PHOSPHATASE 64 U/L (35-104); ALT/SGPT 9 U/L (7.0-40); AST/SGOT 9 U/L (<34); BILIRUBIN,TOTAL 0.4 MG/DL (0.3-1.2); BLOOD UREA NITROGEN 12 MG/DL (9-23); CALCIUM LEVEL 9.3 MG/DL (8.5-10.1); CARBON DIOXIDE LEVEL 27 MMOL/L (20-31); CHLORIDE LEVEL 106 MMOL/L (98-107); CREATININE FOR GFR 0.77 MG/DL (0.55-1.30); GLOMERULAR FILTRATION RATE > 60.0 (>60); GLUCOSE, FASTING 99 MG/DL (60-100); POTASSIUM SERUM 4.2 MMOL/L (3.5-5.1); SODIUM LEVEL 141 MMOL/L (136-145)
== END ==
LOC: M PLALAB 13:08
PROVIDERS: ATTEND Physician Assistant Medical
DX: D50.9 Iron deficiency anemia, unspecified (principal)

== ENCOUNTER → 2024-12-20 | Outpatient (CLI) | payer OTHER | LOC: M RAD 11:22 | PROVIDERS: ATTEND Physician Assistant Medical | DX: N30.01 Acute cystitis with hematuria (principal) ==

== ENCOUNTER → 2024-12-28 | Outpatient (CLI) | payer OTHER | LOC: M WHC 12:41 | PROVIDERS: ATTEND Physician Assistant Medical | DX: R93.89 Abnormal findings on diagnostic imaging of other specified body structures (principal); N83.8 Other noninflammatory disorders of ovary, fallopian tube and broad ligament ==

== ENCOUNTER 2025-06-30 21:20 | Emergency (ER) | payer OTHER, MEDICAID ==
[~2025-06-30] VITALS: Ht 162.6 cm; Wt 69.6 kg
[2025-06-30 23:33] LABS: BASO # 0.1 10^3/uL (0.0-0.2); BASO % 0.9 % (0.0-1.0); EOS # 0.2 10^3/uL (0.0-0.5); EOS % 1.7 % (0.0-3.0); LYMPH # 3.3 10^3/uL (1.5-5.0); LYMPH % 33.7 % (24.0-44.0); MONO # 0.5 10^3/uL (0.0-0.8); MONO % 5.3 % (2.0-8.0); NEUTROPHILS # 5.7 10^3/uL (1.5-8.5); NEUTROPHILS % 57.9 % (36.0-66.0); PLATELET COUNT, AUTOMATED 417 10^3/uL (150-450)
[2025-06-30 23:35] LABS: KETONE, URINE AUTO RFX TRACE mg/dL (NEGATIVE); LEUKOCYTE ESTERASE UR AUTO RFX NEGATIVE (NEGATIVE); MUCUS, URINE RFX SMALL (NEGATIVE); NITRITE, URINE AUTO RFX NEGATIVE (NEGATIVE); RBC, URINE AUTO RFX 4 /HPF (0-3); SQUAM EPITHELIAL CELL UR AURFX 7 /HPF (0-6); WBC, URINE AUTO RFX 1 /HPF (0-3)
[2025-06-30 23:40] LABS: HCG, SERUM QUALITATIVE NEGATIVE (NEGATIVE)
[2025-06-30 23:44] LABS: ALT/SGPT 11 U/L (7.0-40); AST/SGOT 17 U/L (<34); CALCIUM LEVEL 9.4 MG/DL (8.5-10.1); CARBON DIOXIDE LEVEL 27 MMOL/L (20-31); CHLORIDE LEVEL 108 MMOL/L (98-107); CREATININE FOR GFR 0.83 MG/DL (0.55-1.30); GLOMERULAR FILTRATION RATE > 90.0 (>60); POTASSIUM SERUM 4.6 MMOL/L (3.5-5.1); SODIUM LEVEL 141 MMOL/L (136-145)
[2025-07-01] MEDS ORDERED: ISOVUE-370 76% 100 ML VIAL As Ordered ONE (00:44)
[2025-07-01] MEDS: KETOROLAC 30 MG/ML 1 ML VIAL IV ONE (01:34)
[2025-07-01] MEDS: ONDANSETRON 4MG 2ML VIAL IV ONE (01:34)
[2025-07-01] MEDS ORDERED: ONDA-282 PO (01:58)
[2025-07-01] MEDS ORDERED: KETO-204 PO (01:58)
[2025-07-01 02:20] VITALS: BP 119/67; TEMP 97.9; O2SAT 98
== END 2025-07-01 02:34 | disposition home or self-care (01) ==
LOC: M ED 21:20
DX: N83.292 Other ovarian cyst, left side (principal); K21.9 Gastro-esophageal reflux disease without esophagitis; K58.9 Irritable bowel syndrome, unspecified; F41.9 Anxiety disorder, unspecified; F32.A Depression, unspecified; Z88.8 Allergy status to other drugs, medicaments and biological substances; Z79.51 Long term (current) use of inhaled steroids; Z79.899 Other long term (current) drug therapy; Z79.2 Long term (current) use of antibiotics
CPT/HCPCS: 74177; 80048; 80076; 81001; 83690; 84703; 85025; 96374; 99283; J1885; J2405; Q9967

== ENCOUNTER → 2025-07-08 | Outpatient (CLI) | payer OTHER ==
[~2025-07-08] MED LIST changes: +KETO-204 PO
[2025-07-08 15:03] LABS: BASO # 0.1 10^3/uL (0.0-0.2); BASO % 0.7 % (0.0-1.0); EOS # 0.1 10^3/uL (0.0-0.5); EOS % 1.2 % (0.0-3.0); LYMPH # 2.5 10^3/uL (1.5-5.0); LYMPH % 22.0 % (24.0-44.0); MONO # 0.7 10^3/uL (0.0-0.8); MONO % 5.9 % (2.0-8.0); NEUTROPHILS # 7.8 10^3/uL (1.5-8.5); NEUTROPHILS % 69.9 % (36.0-66.0); PLATELET COUNT, AUTOMATED 457 10^3/uL (150-450)
== END ==
LOC: M WUC 12:06
PROVIDERS: ATTEND Physician Assistant Medical
DX: N83.209 Unspecified ovarian cyst, unspecified side (principal)

== ENCOUNTER → 2025-07-13 | Outpatient (CLI) | payer OTHER ==
[2025-07-13 20:03] LABS: LUTEINIZING HORMONE 15.8 mIU/ML; PROLACTIN 8.51 NG/ML
[2025-07-13 20:04] LABS: FREE T4 1.23 NG/DL (0.89-1.76); PROGESTERONE 0.46 NG/ML
== END ==
LOC: M WUC 14:57
PROVIDERS: ATTEND Specialist
DX: N92.6 Irregular menstruation, unspecified (principal)

== ENCOUNTER → 2025-08-04 | Outpatient (CLI) | payer OTHER ==
[2025-08-04 14:15] LABS: BASO # 0.1 10^3/uL (0.0-0.2); BASO % 0.8 % (0.0-1.0); EOS # 0.1 10^3/uL (0.0-0.5); EOS % 1.6 % (0.0-3.0); LYMPH # 2.6 10^3/uL (1.5-5.0); LYMPH % 33.4 % (24.0-44.0); MONO # 0.6 10^3/uL (0.0-0.8); MONO % 7.7 % (2.0-8.0); NEUTROPHILS # 4.3 10^3/uL (1.5-8.5); NEUTROPHILS % 56.2 % (36.0-66.0); PLATELET COUNT, AUTOMATED 424 10^3/uL (150-450)
[2025-08-04 14:20] LABS: IRON (FE) 309 UG/DL (50-170)
[2025-08-04 14:21] LABS: ALT/SGPT 13 U/L (7.0-40); AST/SGOT 12 U/L (<34); CALCIUM LEVEL 9.6 MG/DL (8.5-10.1); CARBON DIOXIDE LEVEL 27 MMOL/L (20-31); CHLORIDE LEVEL 106 MMOL/L (98-107); CHOLESTEROL LEVEL 164 MG/DL (<200); CHOLESTEROL RISK RATIO 2.47 (<5); CREATININE FOR GFR 0.75 MG/DL (0.55-1.30); GLOMERULAR FILTRATION RATE > 90.0 (>60); LDL CHOLESTEROL 82.6 MG/DL (<100); NON-HDL-C 97.8 MG/DL; POTASSIUM SERUM 5.1 MMOL/L (3.5-5.1); SODIUM LEVEL 141 MMOL/L (136-145); TRIGLYCERIDES LEVEL 76 MG/DL (<150)
[2025-08-04 14:22] LABS: TOTAL 25(OH) VITAMIN D 34.2 NG/ML (20.0-100.0)
[2025-08-04 14:29] LABS: PTH INTACT 24.0 PG/ML (18.5-88.0)
[2025-08-04 14:35] LABS: ESTIMATED AVERAGE GLUCOSE 97.0 MG/DL (60-110)
== END ==
LOC: M PLALAB 11:26
PROVIDERS: ATTEND Physician Assistant Medical
DX: K21.9 Gastro-esophageal reflux disease without esophagitis (principal); Z13.1 Encounter for screening for diabetes mellitus; J06.9 Acute upper respiratory infection, unspecified; D50.9 Iron deficiency anemia, unspecified; E55.9 Vitamin D deficiency, unspecified; Z13.220 Encounter for screening for lipoid disorders